=== PATIENT | female | born 1930 | race Caucasian/White ===

== ENCOUNTER → 2016-05-25 | Outpatient (REF) | payer MEDICARE, OTHER ==
[~2016-05-25] MED LIST: /ONDA4TA PO; /PANT40TA PO; ASPI81TA7 PO; BONI150T PO; CALC600T7 PO; CENTTAB PO; LEVO50TA7 PO; LIPI10TA PO; PREV30CA6 PO; TYLE650T30 PO; [UNRECOGNIZED DRUG - CODE] OD; [UNRECOGNIZED DRUG - CODE] OP
== END ==
LOC: M LAB REF 16:28
PROVIDERS: ATTEND Nurse Practitioner Family
DX: R20.2 Paresthesia of skin (principal)

== ENCOUNTER → 2016-05-25 | Outpatient (CLI) | payer MEDICARE, OTHER ==
--- NOTE | 2016-05-25 11:52 | REP ---
CERVICAL SPINE, EIGHT VIEWS: HISTORY: Numbness. There is no acute fracture. The C3-4 through C7-T1 intervertebral discs are decreased in height consistent with disc degeneration. Osteophytes are present on C4 through C6. There is narrowing of the right C3 through C6 and left C4 and C6 neural foraminal secondary to uncinate process hypertrophy. There are 2 mm of anterior subluxation of C3 on C4 through C5 on C6 and C7 on T1. This is unchanged at the C3-4, C4-5 and C7-T1 levels with flexion. This is increased to 3 mm at the C5-6 level with flexion. IMPRESSION: Degenerative change as described above. Signed by Teo Loja MD 05/25/2016 11:55 A
== END ==
LOC: M WUC 11:04
PROVIDERS: ATTEND Nurse Practitioner Family
DX: M50.90 Cervical disc disorder, unspecified, unspecified cervical region (principal); M25.78 Osteophyte, vertebrae

== ENCOUNTER → 2016-06-08 | Outpatient (CLI) | payer MEDICARE, OTHER ==
--- NOTE | 2016-06-09 12:18 | DEXA ---
AP SPINE L1 - L4 1.228 0.3 2.6 LT FEMUR TOTAL 0.961 -0.4 2.1 RT FEMUR TOTAL 0.974 -0.3 2.2 TOTAL BODY TOTAL OTHER DUAL FEMUR FRAX* ASSESSMENT Risk factors: None. 10 year probability of fracture Major osteoporotic fracture 11.0 % Hip fracture 2.7 % COMMENTS: Normal bone densitometry of the spine. There is low bone density of the hips. The density of the spine has increased 20.1% since the initial exam on 09/2003. The spine density has increased 5.0% since the most recent exam on 05/2014. The density of the left hip has decreased 3.2% since the initial exam on 09/2003. The density of the left hip has decreased 0.2% since the most recent exam on 2014. The density of the right hip has decreased 5.3% since the initial exam on 2003. The density of the right hip has decreased 0.3% since the most recent exam on 2014. FOLLOW-UP: Recommendation for the next bone density exam: 2 years. LUIS
== END ==
LOC: M WHC 11:15
PROVIDERS: ATTEND Family Medicine
DX: M81.0 Age-related osteoporosis without current pathological fracture (principal)

== ENCOUNTER → 2016-08-22 | Outpatient (CLI) | payer MEDICARE, OTHER ==
--- NOTE | 2016-08-22 11:37 | REP ---
RIGHT UPPER QUADRANT ULTRASOUND: Real-time sonographic evaluation of the right upper quadrant performed. Two gallstones are seen in the gallbladder measuring up to 9 mm in diameter. There is no gallbladder wall thickening. No gallbladder wall polyps are seen. There is no pericholecystic fluid. There is no intrahepatic or extrahepatic biliary dilatation, common bile duct measuring 5 mm in diameter. Multiple calcified granulomas are seen in the liver. No liver or pancreatic mass is seen. Pancreatic tail is not well seen due to overlying bowel gas. No hydronephrosis is seen of the right kidney which measures 9.7 cm in length. IMPRESSION: Two gallstones seen in the gallbladder which are mobile. No gallbladder wall thickening, pericholecystic fluid or biliary dilatation. Signed by Davon Angeles MD 08/22/2016 08:08 P
== END ==
LOC: M RAD 08:13
PROVIDERS: ATTEND Surgery
DX: K82.9 Disease of gallbladder, unspecified (principal)

== ENCOUNTER 2018-02-21 12:32 | Day surgery (SDC) | payer MEDICARE, OTHER ==
[~2018-02-21 12:32] MED LIST changes: -/ONDA4TA PO; -/PANT40TA PO; +ACETAMINOPHEN 325 MG TAB PO; -ASPI81TA7 PO; -BONI150T PO; -CALC600T7 PO; -CENTTAB PO; -LEVO50TA7 PO; -LIPI10TA PO; +PHENYLEPHRINE HCL 10 % OPHTH. SOL 5ML OD; -PREV30CA6 PO; +PROPARACAINE 0.5% OPHTH SOL 15ML OD; -TYLE650T30 PO; -[UNRECOGNIZED DRUG - CODE] OD; -[UNRECOGNIZED DRUG - CODE] OP
[2018-02-21] MEDS: PHENYLEPHRINE 2.5% OPHTH SOL 2ML OD (12:59)
[2018-02-21] MEDS: LIDOCAINE 3.5 % 1ML OPHTH TOPICAL GEL OU (12:59)
[2018-02-21] MEDS: CYCLOPENTOLATE 2% OPHTH SOLN 2ML BTL OD (12:59)
[2018-02-21] MEDS: TROPICAMIDE 1% OPHTH SOLN 2ML OD (12:59)
[2018-02-21] MEDS: OFLOXACIN 0.3 % (OCUFLOX) OPTH SOL 5ML OD (12:59)
[2018-02-21] MEDS ORDERED: fentaNYL 100 MCG/2 ML INJECTION (J3010) As Ordered (13:14)
[2018-02-21] MEDS ORDERED: MIDAZOLAM INJ 2 MG/2 ML VIAL (J2250) As Ordered (13:14)
[2018-02-21] MEDS: POVIDONE-IODINE 5% OPHTH PREP SOL 30ML As Ordered (13:42)
[2018-02-21] MEDS: LIDOCAINE 1% SDV 5 ML VIAL As Ordered (13:42)
[2018-02-21] MEDS: BALANCED SALT IRRIGATION SOLUTION 500ML BAG (FOR OR EYE MACHINE) As Ordered (13:42)
[2018-02-21] MEDS: ACETYLCHOLINE OPHTH SOLN 1% 2ML (MIOCHOL-E) As Ordered (13:42)
[2018-02-21] MEDS: HEALON DUET (HEALON 10MG/ML 0.55ML & HEALON ENDOCOAT 30MG/ML 0.85ML) As Ordered (13:42)
[2018-02-21] MEDS: CEFUROXIME 1MG/0.1ML INTRACAMERAL INJ As Ordered (13:43)
[2018-02-21] MEDS ORDERED: TRIMETHOBENZAMIDE 300 MG CAP PO (14:15)
[2018-02-21] MEDS: AcetaZOLAMIDE 500 MG ER CAP PO (14:15)
[2018-02-21] MEDS: KETOROLAC 0.5% OPHTH SOLN OD (14:20)
== END 2018-02-21 14:45 | disposition home or self-care (01) ==
LOC: M SDC 12:32
DX: H25.11 Age-related nuclear cataract, right eye (principal); H57.89 Other specified disorders of eye and adnexa; E78.5 Hyperlipidemia, unspecified; Z88.0 Allergy status to penicillin; E03.9 Hypothyroidism, unspecified; Z79.899 Other long term (current) drug therapy
CPT/HCPCS: 66982

== ENCOUNTER → 2018-06-20 | Outpatient (CLI) | payer MEDICARE, OTHER ==
[~2018-06-20] MED LIST changes: +/ONDA4TA PO; +/PANT40TA PO; -ACETAMINOPHEN 325 MG TAB PO; +ASPI81TA7 PO; +BENZ-18 PO; +BIMA01SOL OU; +BONI150T PO; +CALC600T7 PO; +CALCTAB44 PO; +CENTCHW3 PO; +CENTTAB PO; +LEVO50TA7 PO; +LIPI10TA PO; +LUTE20TA PO; -PHENYLEPHRINE HCL 10 % OPHTH. SOL 5ML OD; +PREV30CA6 PO; -PROPARACAINE 0.5% OPHTH SOL 15ML OD; +RANI150T PO; +SYNT50TA PO; +TIMO0.5S42 OU; +TYLE500T78 PO; +TYLE650T30 PO; +ZETI10TA30 PO; +ZOFR4TAB14 PO; +[UNRECOGNIZED DRUG - CODE] OD; +[UNRECOGNIZED DRUG - CODE] OP
--- NOTE | 2018-06-20 19:44 | REPMRS ---
Patient History The patient states she has not had a clinical breast exam in over a year. Family history of ovarian cancer at age 55 in mother, pancreatic cancer at age 76 in father. Digital Woman Screen Mammo: June 20, 2018 - Exam #: [id number] Bilateral CC and MLO view(s) were taken. Technologist: Krysta Nelson, Technologist Prior study comparison: March 02, 2017, digital woman screen mammo performed at [facility]. February 12, 2016, digital woman screen mammo performed at [facility]. FINDINGS: The breast tissue is heterogeneously dense. This may lower the sensitivity of mammography. There has been no change in the appearance of the mammogram from the prior studies. There is a moderate amount of residual fibroglandular tissue which is fairly symmetric. There is no interval development of dominant mass, architectural distortion, or clustered microcalcification typical of malignancy. Large coarse benign appearing calcifications are present. There are bilateral benign arterial calcifications noted. Scattered lymph nodes are seen in the right axilla. 3-D tomosynthesis shows no additional findings. No significant changes when compared with prior studies. Assessment: BI-RADS/ACR category 2 mammogram. Benign Findings. Recommendation Routine screening mammogram in 1 year (for women over age 40). This mammogram was interpreted with the aid of an FDA-approved computer-aided dectection system. A. Negative x-ray reports should not delay biopsy if a dominant or clinically suspicious mass is present. B. Four to eight percent of cancers are not identified by mammography. C. Adenosis and dense breast may obscure an underlying neoplasm. Electronically Signed By: Silvestre Guerrero MD 06/20/18 [id number]
== END ==
LOC: M WHC 12:55
PROVIDERS: ATTEND Family Medicine
DX: Z12.31 Encounter for screening mammogram for malignant neoplasm of breast (principal); Z80.41 Family history of malignant neoplasm of ovary; Z80.0 Family history of malignant neoplasm of digestive organs; R92.1 Mammographic calcification found on diagnostic imaging of breast

== ENCOUNTER → 2020-01-08 | Outpatient (CLI) | payer MEDICARE, OTHER ==
[~2020-01-08] MED LIST changes: -/ONDA4TA PO; -/PANT40TA PO; +CALC-234 PO; -CALCTAB44 PO; +ONDA-1 PO; +PROT1TAB2 PO; +ZETI10TA16 PO; -ZETI10TA30 PO
--- NOTE | 2020-01-08 14:09 | REPMRS ---
Patient History 3D TOMOSYNTHESIS WAS PERFORMED. The patient states she has not had a clinical breast exam in over a year. Family history of ovarian cancer at age 55 in mother, pancreatic cancer at age 76 in father. Digital Woman Screen Mammo: January 08, 2020 - Exam #: [id number] Bilateral CC and MLO view(s) were taken. Technologist: Jackie Lopez, Prior study comparison: June 20, 2018, bilateral digital woman screen mammo performed at [facility]. March 02, 2017, digital woman screen mammo performed at [facility]. FINDINGS: The breast tissue is heterogeneously dense. This may lower the sensitivity of mammography. There has been no change in the appearance of the mammogram from the prior studies. There is a moderate amount of residual fibroglandular tissue which is fairly symmetric. There is no interval development of dominant mass, areas of architectural distortion, or clustered microcalcification typical of malignancy. Assessment: BI-RADS/ACR category 1 mammogram. Negative Mammogram. Recommendation Routine screening mammogram in 1 year (for women over age 40). This mammogram was interpreted with the aid of an FDA-approved computer-aided dectection system. Electronically Signed By: Davon Angeles MD 01/08/20 [id number]
== END ==
LOC: M WHC 11:28
PROVIDERS: ATTEND Family Medicine
DX: Z12.31 Encounter for screening mammogram for malignant neoplasm of breast (principal)

== ENCOUNTER → 2020-12-02 | Outpatient (CLI) | payer MEDICARE, OTHER ==
--- NOTE | 2020-12-02 14:38 | DEXAMM ---
INDICATION: DETERIORATION OF BONE. COMPARISON: 06/08/2016 as well as other prior exams. TECHNIQUE: Bone density was measured using dual-energy x-ray absorptiometry (DEXA). FINDINGS: AP SPINE L1-L4 BMD 1.320 g/cm2 Young Adult T-Score 1.0 Age Matched Z-Score 3.0. LT FEMUR, TOTAL BMD 0.943 g/cm2 Young Adult T-Score -0.5 Age Matched Z-Score 2.0. LT NECK BMD 0.876 g/cm2 Young Adult T-Score -1.2 Age Matched Z-Score 1.4. RT FEMUR, TOTAL BMD 0.984 g/cm2 Young Adult T-Score -0.2 Age Matched Z-Score 2.3. RT NECK BMD 0.920 g/cm2 Young Adult T-Score -0.8 Age Matched Z-Score 1.7. IMPRESSION: There is normal bone density of the spine. There is low bone density of the left hip. There is normal bone density of the right hip. The density of the spine has increased 29.7% since the initial exam on 10/15/2003. The density of the spine increased 7.5% since most recent exam on 06/08/2016. The density of the left hip has decreased 5.0% since initial exam on 10/15/2003. The density of the left hip has decreased 1.9% since most recent exam on 06/08/2016. The density of the right hip has decreased 4.4% since the initial exam on 10/15/2003. The density of the right hip has increased 1.0% since the most recent exam on 06/08/2016. FOLLOW-UP: Recommendation for the next bone density exam: 2 years. <Electronically signed by Davon Angeles > 12/02/20 [id number]
== END ==
LOC: M WHC 13:25
PROVIDERS: ATTEND Family Medicine
DX: M85.88 Other specified disorders of bone density and structure, other site (principal)

== ENCOUNTER → 2021-03-01 | Outpatient (CLI) | payer MEDICARE, OTHER ==
--- NOTE | 2021-03-01 12:10 | REPMRS ---
Patient History The patient states she has not had a clinical breast exam in over a year. Family history of ovarian cancer at age 55 in mother, pancreatic cancer at age 76 in father. Tomosynthesis is performed. Volpara breast density is c. Patient states no breast complaints today. Patient has signed MRS History Sheet. Digital Woman Screen Mammo: March 01, 2021 - Exam #: [id number] Bilateral CC and MLO view(s) were taken. Technologist: Paty Payan Technologist Prior study comparison: January 08, 2020, bilateral digital woman screen mammo performed at [facility]. June 20, 2018, bilateral digital woman screen mammo performed at [facility]. FINDINGS: The breast tissue is heterogeneously dense. This may lower the sensitivity of mammography. There has been no change in the appearance of the mammogram from the prior studies. There is a moderate amount of residual fibroglandular tissue which is fairly symmetric. There is no interval development of dominant mass, areas of architectural distortion, or clustered microcalcification typical of malignancy. Assessment: BI-RADS/ACR category 1 mammogram. Negative Mammogram. Recommendation Routine screening mammogram in 1 year (for women over age 40). This mammogram was interpreted with the aid of an FDA-approved computer-aided dectection system. Electronically Signed By: Davon Angeles MD 03/01/21 [id number]
== END ==
LOC: M WHC 10:56
PROVIDERS: ATTEND Family Medicine
DX: Z12.31 Encounter for screening mammogram for malignant neoplasm of breast (principal)

== ENCOUNTER → 2021-08-11 | Outpatient (CLI) | payer MEDICARE, OTHER ==
[~2021-08-11] MED LIST changes: +ACET1TAB55 PO; +ALEV220T22 PO; +BAYE81TA10 PO; +BRIM5DRO4 OU; +COMB0.2S OP; +KETO0.5S15 OD; +LUTE20CA11 PO; +PANT40TA29 PO
== END ==
LOC: M RAD 08:35
PROVIDERS: ATTEND Internal Medicine Gastroenterology
DX: R13.10 Dysphagia, unspecified (principal); K21.9 Gastro-esophageal reflux disease without esophagitis

== ENCOUNTER → 2021-08-11 | Outpatient (CLI) | payer MEDICARE, OTHER ==
[~2021-08-11] MED LIST changes: +E-Z-GAS II EFFERVESCENT PACKET (SODIUM BICARB./CITRIC ACID/SIMETHICONE) As Ordered ONE; +E-Z-HD 98% w/w 340GM SUSP BTL As Ordered ONE; +E-Z-PAQUE 96% w/w SUSP 176GM BTL As Ordered ONE; +PROHANCE 279.3MG/ML 5ML VIAL As Ordered ONE
== END ==
LOC: M RAD 08:36
PROVIDERS: ATTEND Family Medicine
DX: K44.9 Diaphragmatic hernia without obstruction or gangrene (principal); K21.9 Gastro-esophageal reflux disease without esophagitis; K22.5 Diverticulum of esophagus, acquired

== ENCOUNTER → 2021-08-11 | Outpatient (CLI) | payer MEDICARE, OTHER ==
[~2021-08-11] MED LIST changes: -E-Z-GAS II EFFERVESCENT PACKET (SODIUM BICARB./CITRIC ACID/SIMETHICONE) As Ordered ONE; -E-Z-HD 98% w/w 340GM SUSP BTL As Ordered ONE; -E-Z-PAQUE 96% w/w SUSP 176GM BTL As Ordered ONE; -PROHANCE 279.3MG/ML 5ML VIAL As Ordered ONE
== END ==
LOC: M LABSMTC 09:22
PROVIDERS: ATTEND Anesthesiology
DX: Z01.818 Encounter for other preprocedural examination (principal); Z11.52 Encounter for screening for COVID-19

== ENCOUNTER 2021-08-16 12:05 | Day surgery (SDC) | payer MEDICARE, OTHER ==
[~2021-08-16] VITALS: Ht 157.5 cm; Wt 54.9 kg
[~2021-08-16 12:05] MED LIST changes: +NS 1,000 ML IV ONE
[2021-08-16] MEDS ORDERED: LIDOCAINE 2% 100MG/5ML SDV (FOR ANES.) As Ordered ONE (12:58)
[2021-08-16] MEDS ORDERED: propofoL 200 MG/20 ML VIAL As Ordered ONE (12:58)
[2021-08-16] MEDS ORDERED: fentaNYL 100 MCG/2 ML INJECTION As Ordered ONE (12:59)
[2021-08-16 14:00] VITALS: BP 142/68
== END 2021-08-16 14:16 | disposition home or self-care (01) ==
LOC: M OPP 12:05
PROVIDERS: ATTEND Internal Medicine Gastroenterology
DX: R13.10 Dysphagia, unspecified (principal); K44.9 Diaphragmatic hernia without obstruction or gangrene; K22.2 Esophageal obstruction
CPT/HCPCS: 43235; J3010